=== PATIENT | male | born 1965 | race Caucasian/White ===

== ENCOUNTER 2017-12-24 19:27 | Emergency (ER) | payer BC ==
[2017-12-24 19:49] VITALS: BP 146/101
[2017-12-24] MEDS ORDERED: Diphtheria,Pertussis(Acell),Tetanus Vaccine 0.5 ML SDV IM ONE (20:03)
[2017-12-24] MEDS ORDERED: Bacitracin/Neomycin/Polymyxin B Oint 0.9 GM U/D Packet TOP ONE (20:29)
--- NOTE | 2017-12-24 20:29 | EDM.PDOC ---
ED HPI GENERAL MEDICAL PROBLEM - General Chief Complaint: Laceration Stated Complaint: laceration to Left base of index finger Time Seen by Provider: 12/24/17 19:58 Source of Information: Reports: Patient History Limitations: Reports: No Limitations - History of Present Illness INITIAL COMMENTS - FREE TEXT/NARRATIVE: 2cm laceration located dorsal hand near base of 2nd finger on left. Injured when wrench patient was holding slipped. Hand bounced off of jagged metal. No loss of function. No numbness or tingling of hand/fingers. Denies other injuries. Tetanus is at least 5 years out of date. Patient cannot recall last Tetanus booster and [facility], no recent record on file with them either. Left 2-Index finger Pain Score (Numeric/FACES): 6 - Related Data Allergies Allergy/AdvReac Type Severity Reaction Status Date / Time Sulfa (Sulfonamide Allergy Rash Verified 12/24/17 19:38 Antibiotics) Home Meds: Home Meds . [No Known Home Meds] 12/24/17 [History] Past Medical History HEENT History: Reports: Hard of Hearing, Other (See Below) Other HEENT History: Mild bilateral hearing loss with constant tinnitus Cardiovascular History: Reports: None. Denies: Afib, Aneurysm, Arrhythmia, Blood Clots/VTE/DVT, CAD, Heart Failure, Heart Murmur, High Cholesterol, Hypertension, [place], Syncope Respiratory History: Reports: None. Denies: Asthma, COPD, Intubation, Previous , PE, Pneumothorax, Sleep Apnea Gastrointestinal History: Reports: GERD, Jaundice, Other (See Below) Other Gastrointestinal History: jaundice Genitourinary History: Reports: None. Denies: Chronic Renal Insuffiency, Renal Calculus, STD, Urinary Incontinence, UTI, Recurrent Musculoskeletal History: Reports: None. Denies: Amputation, Arthritis, Back Pain, Chronic, Fracture, Gout, Neck Pain, Chronic, Osteoarthritis, SLE Neurological History: Reports: Concussion, Headaches, Chronic, Head Trauma, Other (See Below) Other Neuro History: Concussion in 1983 Endocrine/Metabolic History: Reports: None. Denies: Diabetes, Type I, Diabetes , Type II, Hypothyroidism, IDDM Hematologic History: Reports: None. Denies: Anemia, Blood Transfusion(s), Iron Deficiency Immunologic History: Reports: None. Denies: AIDS, HIV, SLE Oncologic (Cancer) History: Reports: None. Denies: Basal Cell Carcinoma, Hodgkin's Lymphoma, Leukemia, Lymphoma, Malignant Melanoma, Non-Hodgkin's Lymphoma, Squamous Cell Carcinoma Dermatologic History: Reports: None. Denies: Eczema, Melanoma Other Dermatologic History: laceration to midline frontal region of head. 11/04/15 - Infectious Disease History Infectious Disease History: Reports: MRSA. Denies: C-Difficile, Chicken Pox, Measles, Mononucleosis, Pertussis (Whooping Cough), Rheumatic Fever, Rubella, Shingles, TB, VRE Other Infectious Disease History: MRSA of the left leg in 2014 requiring vancomycin therapy - Past Surgical History HEENT Surgical History: Reports: Adenoidectomy, Oral Surgery, Tonsillectomy, Other (See Below) GI Surgical History: Reports: Hernia, Inguinal, Other (See Below) Male Surgical History: Reports: Circumcision, Vasectomy, Other (See Below) - Past Imaging History Past Imaging History: Reports: CAT Scan, Upper GI X-Ray/Series Social & Family History - Tobacco Use Smoking Status *Q: Never Smoker Years of Tobacco use: 6 Packs/Tins Daily: 0.1 Used Tobacco, but Quit: Yes Second Hand Smoke Exposure: No - Caffeine Use Caffeine Use: Reports: Coffee Other Caffeine Use: occasional coffee Caffeine Use Comment: 3 cups of coffee per day, 2 sodas per week - Alcohol Use Days Per Week of Alcohol Use: 1 Number of Drinks Per Day: 4 Total Drinks Per Week: 4 - Recreational Drug Use Recreational Drug Use: No Drug Use in Last 12 Months: No - Living Situation & Occupation Living situation: Reports: , with Family Occupation: Employed ED ROS GENERAL - Review of Systems Review Of Systems: ROS reveals no pertinent complaints other than HPI. ED EXAM, SKIN/RASH Exam: See Below Exam Limited By: No Limitations General Appearance: Alert, WD/WN, No Apparent Distress Eye Exam: Bilateral Eye: EOMI Head: Atraumatic, Normocephalic Neck: Supple Respiratory/Chest: No Respiratory Distress Extremities: Other (2cm laceration dorsal left hand near base of 2nd finger. Tendon function left hand intact. NVI. Full thickness. Has nearby 3cm very superfical skin laceration that is not full thickness. ) Neurological: Alert, Oriented, Normal Cognition, Normal Gait, No Motor/Sensory Deficits Psychiatric: Normal Affect, Normal Mood Skin: Warm, Dry, Other (see above) Location, Skin: Upper Extremity, Left ED SKIN PROCEDURES - Laceration/Wound Repair Left Hand Lac/Wound length In cm: 2 Appearance: Subcutaneous, Linear, Clean Distal NVT: Neuro & Vascular Intact, No Tendon Injury Anesthetic Type: Local Local Anesthesia - Lidocaine (Xylocaine): 1% Plain Local Anesthetic Volume: 3cc Skin Prep: Providone-Iodine (Betadine), Saline Exploration/Debridement/Repair: Wound Explored, In a Bloodless Field, Explored to Base Suture Size: 4-0 # of Sutures: 5 Suture Type: Nylon, Interrupted Drain Placement: No Sterile Dressing Applied: Nurse Tetanus Status Addressed: Yes Complications: No Course - Vital Signs Last Recorded V/S: Last Vital Signs Temp 37.1 C 12/24/17 19:27 Pulse 78 12/24/17 19:27 Resp 18 12/24/17 19:27 BP 146/101 H 12/24/17 19:27 Pulse Ox 98 12/24/17 19:27 - Orders/Labs/Meds Orders: Active Orders 24 hr Category Date Time Status Vaccines to be Administered [RC] PER UNIT ROUTINE Care 12/24/17 20:03 Active Meds: Medications Discontinued Medications Generic Name Dose Route Start Last Admin Trade Name Freq PRN Reason Stop Dose Admin Diphtheria/Tetanus/Acell Pertussis 0.5 ml 12/24/17 20:03 12/24/17 20:12 Adacel IM 12/24/17 20:04 0.5 ml .ONCE ONE Administration Lidocaine HCl 5 ml 12/24/17 20:01 12/24/17 20:09 Xylocaine-Mpf 1% INJECT 12/24/17 20:02 5 ml ONETIME ONE Administration Neomycin/Polymyxin/Bacitracin 1 each 12/24/17 20:29 Triple Antibiotic Oint TOP 12/24/17 20:30 ONETIME ONE - Re-Assessments/Exams Free Text/Narrative Re-Assessment/Exam: 12/24/17 20:36 Laceration repaired. Tetanus updated. BP improved but still elevated. [facility] says [facility] and that he has an upcoming appointment in a few weeks for follow up. Has been observing BP trends at home with his own machine and is keeping diary. Has no complaints , feels well otherwise. Discussed risks of persistent elevated BP with patient prior to discharge and encouraged him to consider starting an antihypertensive if elevation persists. He did say that diastolic is usually around 90 and thinks tonight's BP is aggravated by the hand injury and need to come to the ER. Departure - Departure Time of Disposition: 20:26 Disposition: Home, Self-Care 01 Condition: Good Clinical Impression: Laceration of left hand Qualifiers: Encounter type: initial encounter Foreign body presence: without foreign body Qualified Code(s): S61.412A - Laceration without foreign body of left hand, initial encounter Hypertension Qualifiers: Hypertension type: unspecified Qualified Code(s): I10 - Essential (primary) hypertension - Discharge Information Instructions: Stitches, [place], or Adhesive Wound Closure, [id number] Forms: ED Department Discharge Additional Instructions: Sutures out 8-10 days. You may come to the front clinic to have this done and there will be no charge. Follow up as needed if you have any problems/signs of infection. [facility] scheduled upcoming appointment and review your blood pressure readings/journal and potential need to start medications for this. - My Orders Last 24 Hours: My Active Orders 12/24/17 20:03 Vaccines to be Administered [RC] PER UNIT ROUTINE - Assessment/Plan Last 24 Hours: My Active Orders 12/24/17 20:03 Vaccines to be Administered [RC] PER UNIT ROUTINE
== END 2017-12-24 21:03 | disposition home or self-care (01) ==
LOC: LL.ED 19:27
DX: S61.211A Laceration without foreign body of left index finger without damage to nail, initial encounter (principal); K21.9 Gastro-esophageal reflux disease without esophagitis; I10 Essential (primary) hypertension; Z88.2 Allergy status to sulfonamides; Z86.14 Personal history of Methicillin resistant Staphylococcus aureus infection; Z23 Encounter for immunization; W26.8XXA Contact with other sharp object(s), not elsewhere classified, initial encounter
CPT/HCPCS: 12001; 90471; 90715; 99283

== ENCOUNTER 2021-07-10 10:08 | Emergency (ER) | payer BC ==
[2021-07-10] MEDS ORDERED: Sodium Chloride 0.9% 1,000 ML IV ONE (10:18)
[2021-07-10 10:22] VITALS: PULSE 71
[2021-07-10] MEDS ORDERED: Sodium Chloride 0.9% 10 ML Syringe FLUSH PRN (10:28)
--- NOTE | 2021-07-10 10:46 | EDM.PDOC ---
ED HPI GENERAL MEDICAL PROBLEM - General Chief Complaint: Syncope Stated Complaint: syncope Time Seen by Provider: 07/10/21 10:17 Source of Information: Reports: Patient History Limitations: Reports: No Limitations - History of Present Illness INITIAL COMMENTS - FREE TEXT/NARRATIVE: Patient sent from [facility] after having syncopal episode after bending over. Has had near syncope in past when he stood up too quickly. Recent viral type illness with headache/body aches/sore throat/cough. No GI changes. No SOB. Has not had Covid vaccine. Feels ok now. Has some back discomfort that was present before this incident and has chiropractor appointment for this later in day. Is in C-Collar but denies neck discomfort. No new pain. Small bump back of head per EMS personnel. Back Pain Score (Numeric/FACES): 4 - Related Data Allergies Allergy/AdvReac Type Severity Reaction Status Date / Time Sulfa (Sulfonamide Allergy Rash Verified 07/10/21 10:10 Antibiotics) Home Meds: Home Meds Albuterol Sulfate [Albuterol Sulfate HFA] 8.5 gm INH ASDIRECTED PRN #1 ea 07/10/21 [Rx] Past Medical History HEENT History: Reports: Hard of Hearing, Other (See Below) Other HEENT History: Mild bilateral hearing loss with constant tinnitus Cardiovascular History: Reports: None Respiratory History: Reports: None Gastrointestinal History: Reports: GERD, Jaundice, Other (See Below) Other Gastrointestinal History: jaundice Genitourinary History: Reports: None Musculoskeletal History: Reports: None Neurological History: Reports: Concussion, Headaches, Chronic, Head Trauma, Other (See Below) Other Neuro History: Concussion in 1983 Endocrine/Metabolic History: Reports: None Hematologic History: Reports: None Immunologic History: Reports: None Oncologic (Cancer) History: Reports: None Dermatologic History: Reports: None Other Dermatologic History: laceration to midline frontal region of head. 11/04/15 - Infectious Disease History Infectious Disease History: Reports: MRSA Other Infectious Disease History: MRSA of the left leg in 2014 requiring vancomycin therapy - Past Surgical History Head Surgeries/Procedures: Reports: None HEENT Surgical History: Reports: Adenoidectomy, Oral Surgery, Tonsillectomy, Other (See Below) Other HEENT Surgeries/Procedures: Tonsillectomy and adenoidectomy at age 14, [place] teeth extraction 1987 Cardiovascular Surgical History: Reports: None Respiratory Surgical History: Reports: None GI Surgical History: Reports: Hernia, Inguinal, Other (See Below) Other GI Surgeries/Procedures: Left inguinal hernia repair with concomitant varicocele excision in 2004 Male Surgical History: Reports: Circumcision, Vasectomy, Other (See Below) Other Male Surgeries/Procedures: Circumcision as an , varicocele excis ion as above, vasectomy in 2010 Endocrine Surgical History: Reports: None Neurological Surgical History: Reports: None Musculoskeletal Surgical History: Reports: None Oncologic Surgical History: Reports: None Dermatological Surgical History: Reports: None - Past Imaging History Past Imaging History: Reports: CAT Scan, Upper GI X-Ray/Series Social & Family History - Tobacco Use Tobacco Use Status *Q: Never Tobacco User - Caffeine Use Caffeine Use: Reports: Coffee Other Caffeine Use: occasional coffee Caffeine Use Comment: 3 cups of coffee per day, 2 sodas per week - Alcohol Use Alcohol Use History: Yes Alcohol Use Frequency: Socially - Recreational Drug Use Recreational Drug Use: No Drug Use in Last 12 Months: No - Living Situation & Occupation Living situation: Reports: , with Family Occupation: Employed ED ROS GENERAL - Review of Systems Review Of Systems: Comprehensive ROS is negative, except as noted in HPI. ED EXAM, GENERAL - Physical Exam Exam: See Below Exam Limited By: No Limitations General Appearance: Alert, WD/WN, No Apparent Distress, Other (C-Collar in place) Eye Exam: Bilateral Eye: EOMI, PERRL Ears: Normal External Exam, Normal Canal, Hearing Grossly Normal Nose: No: Nasal Deformity, Nasal Swelling, Nasal Drainage Throat/Mouth: Normal Lips, Normal Voice, No Airway Compromise Head: Atraumatic, Normocephalic Neck: Other (C-Collar) Respiratory/Chest: No Respiratory Distress, Lungs Clear, Normal Breath Sounds, No Accessory Muscle Use, Chest Non-Tender Cardiovascular: Normal Peripheral Pulses, Regular Rate, Rhythm GI/Abdominal: Normal Bowel Sounds, Soft, Non-Tender, No Distention (Male) Exam: Deferred Rectal (Males) Exam: Deferred Back Exam: No: Muscle Spasm Extremities: Normal Inspection, Normal Range of Motion, Non-Tender, Normal Capillary Refill Neurological: Alert, Oriented, Normal Cognition, No Motor/Sensory Deficits Psychiatric: Normal Affect, Normal Mood Skin Exam: Warm, Normal Color #1 Interpretation EKG Date: 07/10/21 Time: 10:25 Rhythm: NSR Rate (Beats/Min): 66 [place]: Normal P-Wave: Present QRS: Normal ST-T: Normal QT: Normal Course - Vital Signs Last Recorded V/S: Last Vital Signs Temp 36.6 C 07/10/21 10:21 Pulse 71 07/10/21 10:21 Resp 19 07/10/21 11:45 BP 144/88 H 07/10/21 11:45 Pulse Ox 95 07/10/21 11:45 - Orders/Labs/Meds Orders: Active Orders 24 hr Category Date Time Status C-Spine [Cervical Spine 2V or 3V] [CR] Stat Exams 07/10/21 10:18 Taken CULTURE STREP A CONFIRMATION [RM] Stat Lab 07/10/21 10:38 Results STREP SCRN A RAPID W CULT CONF [RM] Stat Lab 07/10/21 10:38 Results Isolation [COMM] Routine Oth 07/10/21 10:41 Active Peripheral IV Insertion Adult [OM.PC] Routine Oth 07/10/21 10:28 Ordered Labs: Laboratory Tests 07/10/21 07/10/21 07/10/21 Range/Units 10:17 10:20 10:30 WBC 7.9 (4.0-10.2) K/uL RBC 5.14 (4.33-5.41) M/uL Hgb 15.2 (13.1-16.8) g/dL Hct 44.0 (39.0-49.0) % MCV 85.6 (84.0-98.0) fL MCH 29.6 (28.2-33.3) pg MCHC 34.5 (31.7-36.0) g/dL RDW 14.2 H (11.2-14.1) % Plt Count 192 (150-350) K/uL Neut % (Auto) 72.2 (45.0-80.0) % Lymph % (Auto) 14.9 (10.0-50.0) % [place] % (Auto) 12.3 (2.0-14.0) % Eos % (Auto) 0.1 (0.0-5.0) % Baso % (Auto) 0.5 (0.0-2.0) % Neut # (Auto) 5.70 (1.40-7.00) K/uL Lymph # (Auto) 1.18 (0.50-3.50) K/uL [place] # (Auto) 0.97 (0.00-1.00) K/uL Eos # (Auto) 0.01 (0.00-0.50) K/uL Baso # (Auto) 0.04 (0.00-0.20) K/uL Sodium (136-145) mmol/L Potassium (3.5-5.1) mmol/L Chloride (98-107) mmol/L Carbon Dioxide (21.0-32.0) mmol/L Anion Gap (7-15) meq/L BUN (7-18) mg/dL Creatinine (0.51-1.17) mg/dL Est Cr Clr Drug Dosing mL/min Estimated GFR (MDRD) mL/min Glucose (70-99) mg/dL Lactic Acid 1.7 (0.4-2.0) mmol/L Calcium (8.5-10.1) mg/dL Magnesium (1.8-2.4) mg/dL Total Bilirubin (0.2-1.0) mg/dL AST (15-37) U/L ALT (12-78) U/L Alkaline Phosphatase (46-116) IU/L Total Protein (6.4-8.2) g/dL Albumin (3.4-5.0) g/dL Specimen Type Urinvoid Urine Color Yellow Urine Appearance Clear Urine pH 6.0 (5.0-9.0) Ur Specific [place] 1.010 (1.005-1.030) Urine Protein Negative (NEGATIVE) mg/dL Urine Glucose (UA) Negative (NEGATIVE) mg/dL Urine Ketones Negative (NEGATIVE) mg/dL Urine Occult Blood Trace-lysed H (NEGATIVE) Urine Nitrite Negative (NEGATIVE) Urine Bilirubin Negative (NEGATIVE) Urine Urobilinogen 0.2 (0.2-1.0) E.U./dL Ur Leukocyte Esterase Negative (NEGATIVE) Urine RBC 0-5 /HPF Urine WBC 0-5 /HPF Ur Epithelial Cells Occasional /LPF Urine Bacteria Occasional (NONE TO FEW) /HPF SARS-CoV-2 RNA (CIRA) (NEGATIVE) 07/10/21 07/10/21 Range/Units 10:38 11:00 WBC (4.0-10.2) K/uL RBC (4.33-5.41) M/uL Hgb (13.1-16.8) g/dL Hct (39.0-49.0) % MCV (84.0-98.0) fL MCH (28.2-33.3) pg MCHC (31.7-36.0) g/dL RDW (11.2-14.1) % Plt Count (150-350) K/uL Neut % (Auto) (45.0-80.0) % Lymph % (Auto) (10.0-50.0) % [place] % (Auto) (2.0-14.0) % Eos % (Auto) (0.0-5.0) % Baso % (Auto) (0.0-2.0) % Neut # (Auto) (1.40-7.00) K/uL Lymph # (Auto) (0.50-3.50) K/uL [place] # (Auto) (0.00-1.00) K/uL Eos # (Auto) (0.00-0.50) K/uL Baso # (Auto) (0.00-0.20) K/uL Sodium 140 (136-145) mmol/L Potassium 3.6 (3.5-5.1) mmol/L Chloride 105 (98-107) mmol/L Carbon Dioxide 22.9 (21.0-32.0) mmol/L Anion Gap 12.1 (7-15) meq/L BUN 14 (7-18) mg/dL Creatinine 1.20 H (0.51-1.17) mg/dL Est Cr Clr Drug Dosing 77.24 mL/min Estimated GFR (MDRD) > 60 mL/min Glucose 145 H (70-99) mg/dL Lactic Acid (0.4-2.0) mmol/L Calcium 8.3 L (8.5-10.1) mg/dL Magnesium 1.9 (1.8-2.4) mg/dL Total Bilirubin 0.4 (0.2-1.0) mg/dL AST 35 (15-37) U/L ALT 41 (12-78) U/L Alkaline Phosphatase 64 (46-116) IU/L Total Protein 6.9 (6.4-8.2) g/dL Albumin 3.9 (3.4-5.0) g/dL Specimen Type Urine Color Urine Appearance Urine pH (5.0-9.0) Ur Specific [place] (1.005-1.030) Urine Protein (NEGATIVE) mg/dL Urine Glucose (UA) (NEGATIVE) mg/dL Urine Ketones (NEGATIVE) mg/dL Urine Occult Blood (NEGATIVE) Urine Nitrite (NEGATIVE) Urine Bilirubin (NEGATIVE) Urine Urobilinogen (0.2-1.0) E.U./dL Ur Leukocyte Esterase (NEGATIVE) Urine RBC /HPF Urine WBC /HPF Ur Epithelial Cells /LPF Urine Bacteria (NONE TO FEW) /HPF SARS-CoV-2 RNA (CIRA) Positive H (NEGATIVE) Meds: Medications Discontinued Medications Generic Name Dose Route Start Last Admin Trade Name Freq PRN Reason Stop Dose Admin Cyclobenzaprine HCl 10 mg 07/10/21 11:34 07/10/21 12:00 Cyclobenzaprine 10 Mg Tab PO 07/10/21 11:35 10 mg ONETIME ONE Administration Sodium Chloride 1,000 mls @ 999 mls/hr 07/10/21 10:18 07/10/21 10:59 Normal Saline IV 07/10/21 11:18 999 mls/hr .BOLUS ONE Administration Sodium Chloride 500 mls @ 999 mls/hr 07/10/21 12:00 07/10/21 12:08 Normal Saline IV 999 mls/hr .BOLUS GALEN Administration Ketorolac Tromethamine 15 mg 07/10/21 11:34 07/10/21 12:00 Ketorolac 15 Mg/Ml Sdv IVPUSH 07/10/21 11:35 15 mg ONETIME ONE Administration Sodium Chloride 10 ml 07/10/21 10:28 Sodium Chloride 0.9% 10 Ml Syringe FLUSH ASDIRECTED PRN Keep Vein Open - Re-Assessments/Exams Free Text/Narrative Re-Assessment/Exam: 07/10/21 10:46 Baseline labs ordered. C-spine requested. Influenza/Covid/Strep testing. IV fluid 1L bolus while labs being performed. EKG shows NSR. Free Text/Narrative Re-Assessment/Exam: 07/10/21 11:35 Negative strep/flu. C-spine unremarkable. Collar removed. Toradol IV/Flexeril for sore back complaint Free Text/Narrative Re-Assessment/Exam: 07/10/21 12:10 + Covid. Results and usual course of Covid reviewed with patient. Rx for Albuterol inhaler. [employer] work form filled out for patient. Precautions reviewed. To follow up as needed PRN worsening problems. Departure - Departure Time of Disposition: 13:30 Disposition: Home, Self-Care 01 Condition: Good Clinical Impression: COVID-19 Syncope Qualifiers: Syncope type: vasovagal syncope Qualified Code(s): R55 - Syncope and collapse - Discharge Information *PRESCRIPTION DRUG MONITORING PROGRAM REVIEWED*: Not Applicable *COPY OF PRESCRIPTION DRUG MONITORING REPORT IN PATIENT MARIA D: Not Applicable Prescriptions: Albuterol Sulfate [Albuterol Sulfate HFA] 8.5 gm INH ASDIRECTED PRN #1 ea PRN Reason: Shortness Of Breath Instructions: COVID-19 Frequently Asked Questions, COVID-19: What to Do If You Are Sick- [facility] (12/13/2020) Referrals: PCP,None [Primary Care Provider] - Forms: ED Department Discharge Additional Instructions: No work for 10 days. Use inhaler for cough and any feelings of being short of breath. Try to stay hydrated. Follow up as needed if you have worsening feelings of shortness of breath/have significantly worsening symptoms. Call if you have questions. Sepsis Event Note (ED) - Evaluation Sepsis Screening Result: No Definite Risk - Focused Exam Vital Signs: Vital Signs Temp Pulse Resp BP Pulse Ox 07/10/21 11:45 19 144/88 H 95 07/10/21 11:30 18 139/76 95 07/10/21 11:15 19 124/74 95 07/10/21 11:00 20 135/75 95 07/10/21 10:45 21 H 120/99 H 95 07/10/21 10:30 20 131/74 95 07/10/21 10:21 36.6 C 71 17 137/77 97 - My Orders Last 24 Hours: My Active Orders 07/10/21 10:18 C-Spine [Cervical Spine 2V or 3V] [CR] Stat 07/10/21 10:28 Peripheral IV Insertion Adult [OM.PC] Routine 07/10/21 10:38 CULTURE STREP A CONFIRMATION [RM] Stat STREP SCRN A RAPID W CULT CONF [RM] Stat 07/10/21 10:41 Isolation [COMM] Routine - Assessment/Plan Last 24 Hours: My Active Orders 07/10/21 10:18 C-Spine [Cervical Spine 2V or 3V] [CR] Stat 07/10/21 10:28 Peripheral IV Insertion Adult [OM.PC] Routine 07/10/21 10:38 CULTURE STREP A CONFIRMATION [RM] Stat STREP SCRN A RAPID W CULT CONF [RM] Stat 07/10/21 10:41 Isolation [COMM] Routine
[2021-07-10 11:20] LABS: ANION GAP 12.1 meq/L (7-15); CHLORIDE,CL 105 mmol/L (98-107); SODIUM,NA 140 mmol/L (136-145)
[2021-07-10] MEDS ORDERED: Cyclobenzaprine 10 MG Tab PO ONE (11:34)
[2021-07-10] MEDS ORDERED: Ketorolac 15 MG/ML SDV IVPUSH ONE (11:34)
[2021-07-10] MEDS ORDERED: Sodium Chloride 0.9% 500 ML IV SCH (12:00)
[2021-07-10 12:35] VITALS: BP 144/88
== END 2021-07-10 12:55 | disposition home or self-care (01) ==
LOC: LL.ED 10:08
DX: U07.1 COVID-19 (principal); R55 Syncope and collapse; Z88.2 Allergy status to sulfonamides
CPT/HCPCS: 36415; 72040; 80053; 81001; 83605; 83735; 85025; 87081; 87430; 87804; 93005; 96374; 99284-25; A9270-GY; J1885; J7030; J7040; U0002